=== PATIENT | male | born 2000 | race Caucasian/White ===

== ENCOUNTER 2019-01-30 17:33 | Emergency (ER) | payer MEDICAID, OTHER ==
[2019-01-30 17:41] VITALS: RESP 18; TEMP 99
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
[2019-01-30 18:40] VITALS: BP 138/90; PULSE 63
== END 2019-01-30 18:38 | disposition home or self-care (01) ==
LOC: EC 17:33
DX: M79.602 Pain in left arm (principal); F17.200 Nicotine dependence, unspecified, uncomplicated; V43.52XA Car driver injured in collision with other type car in traffic accident, initial encounter; Y92.410 Unspecified street and highway as the place of occurrence of the external cause
CPT/HCPCS: 99284